=== PATIENT | male | born 1960 | race Two or more races ===

== ENCOUNTER 2021-04-27 19:51 | Observation (INO) | payer MEDICARE, MEDICAID ==
[~2021-04-27] VITALS: Ht 177.8 cm; Wt 87.5 kg
[2021-04-27 21:30] VITALS: BP 188/112
[2021-04-27] MEDS ORDERED: NS 1,000 ML IV SCH (21:50)
[2021-04-27] MEDS ORDERED: HYDROMORPHONE HCL 0.5 MG/ 0.5 ML SYRINGE (J1170 PER 1) IV PRN (21:50)
[2021-04-27] MEDS ORDERED: ACETAMINOPHEN TAB 650MG DOSE (2X325MG) PO PRN (21:50)
[2021-04-27] MEDS ORDERED: cefTRIAXone SOD 1 GM in D5W MINI-BAG PLUS 50 ML IV ONE (21:50)
[2021-04-27] MEDS ORDERED: PANT40TA29 PO (22:11)
[2021-04-27] MEDS ORDERED: HYDR-3713 PO (22:11)
[2021-04-27] MEDS ORDERED: TAMS1CAP17 PO (22:11)
[2021-04-27] MEDS ORDERED: IBUP80TA PO (22:11)
[2021-04-27] MEDS ORDERED: ONDA-83 PO (22:11)
[2021-04-27] MEDS ORDERED: CIAL20TA PO (22:13)
[2021-04-27] MEDS ORDERED: HOME MED LIST COMPLETE! XX SCH (22:20)
[2021-04-27] MEDS ORDERED: ONDANSETRON 4MG/2ML VIAL IV PRN (22:35)
[2021-04-27] MEDS ORDERED: **hydrALAZINE** 10 MG TAB PO PRN (22:35)
[2021-04-27] MEDS: PERCOCET 5MG/325MG TAB PO PRN (23:00)
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
[2021-04-28] MEDS ORDERED: PANTOPRAZOLE 40MG VIAL (C9113 PER 1) IV ONE (00:35)
[2021-04-28 01:29] VITALS: BP 146/79
--- NOTE | 2021-04-28 02:14 | SMCUROLCON ---
Urology Consultation General Date of Consultation 04/28/21 Reason For Consultation This patient is seen for Obstructing Renal Calculi. History of Present Illness The patient is a 60-year-old man with a past medical history of kidney stones, uncontrolled HTN, GERD, and "overactive adrenal gland," initially presenting to [facility] ED twice in under 24hrs w/ L flank pain. WBC 11, Cr 1.1, UA negative for infection. On second presentation, pt underwent CT scan which showed 6mm L obstructing ureteral stone w/ perinephric fluid and hydronephrosis (pt came with imaging on a disk; unable to view images at this time.). Pain unable to be controlled with PO pain medications or heating pads at home (which is how pt self-treated stones in the past). Pt denies fever, chills, N/V, hematuria, dysuria. Pt has had no prior procedures for stones but says that he has passed many in the past spontaneously. States that he normally uses a heating pad to assist with stone passage. Given pt's repeat presentation and inability to control pain with oral pain m eds, pt was transferred to [facility] and admitted to the Hospitalist service for further management and urology consult for likely intervention. Pt given Ceftriaxone, IV Dilaudid and PO Oxycodone; also initially had SBP in 180s but down to 140s by the time he was assessed by me at ~1am on 04/28/21. Pt appeared to be in less acute distress than described in previous records or verbal signout from ED provider at [facility]. Past Medical History Medical History Urolithiasis GERD HTN (uncontrolled) "overactive adrenal gland" (evaluation unclear as pt did not pursue full work-up and treatment) Surgical Hstory Appendectomy L shoulder R femur Medications Current Medications Current Medications Medications (Trade) Dose Ordered Sig/Bc Route PRN Reason Start Time Stop Time Status Last Admin Dose Admin Acetaminophen (Tylenol Tab) 650 mg Q4H PRN PO MILD PAIN or TEMP > 101 04/27/21 21:50 Heparin Sodium (Porcine) (Heparin) 5,000 units Q12H SC 04/28/21 09:00 04/27/21 22:36 DC Home Med (Home Med List Complete!) ASDIRECTED XX 04/27/21 22:20 04/27/21 22:18 DC Hydralazine HCl (Apresoline) 10 mg Q6HP PRN PO SBP > 170 or DBP >100 04/27/21 22:35 Hydromorphone HCl (Dilaudid) 0.4 mg Q3HP PRN IV SEVERE PAIN 04/27/21 21:50 04/28/21 00:21 Ondansetron HCl (ZOFRAN INJection) 4 mg Q6HP PRN IV NAUSEA OR VOMITING 04/27/21 22:35 Oxycodone/ Acetaminophen (Percocet 5mg/ 325mg Tablet) 1 tab Q6HP PRN PO MODERATE PAIN (PS 5-7) 04/27/21 21:50 04/27/21 23:00 Pantoprazole Sodium (Protonix) 40 mg DAILY PO 04/28/21 09:00 Sodium Chloride 1,000 ml @ 75 mls/hr [id number] IV 04/27/21 21:50 04/27/21 23:00 Tamsulosin HCl (Flomax) 0.4 mg DAILY PO 04/28/21 09:00 Allergies Allergies: Coded Allergies: No Known Allergies (Verified Allergy, Unknown, 04/27/21) Physical Examination General Exam: Cooperative, No Acute Distress Abdomen Exam: Soft, Tenderness (mild L flank tenderness) Vital Signs/I&O Vital Signs Date Time Temp Pulse Resp B/P (MAP) Pulse Ox O2 Delivery O2 Flow Rate FiO2 04/28/21 01:29 80 146/79 (101) 04/28/21 00:51 16 04/27/21 21:30 99.1 95 Room Air I&O- Last 24 Hours up to 6 AM 04/28/21 06:00 Intake Total 0 ml Output Total 475 ml Balance -475 ml Assessment 60yo M w/ 6mm L obstructive ureteral stone; no evidence of concurrent infection or concern for sepsis. Also w/ uncontrolled HTN, improved since admission. I spent 15 minutes explaining the pt's condition, treatment options, plan, and required follow-up. I explained that the pt's symptoms are unlikely to resolve without an intervention to relieve the blockage caused by the stone. I explained that a ureteral stent placement would be the best option to decompress his kidney and that the procedure itself is a very routine procedure with minimal risk (bleeding and infection being the primary risks, as well as inability to place stent which would require nephrostomy tube placement). I explained the alternatives, including direct draining via nephrostomy tube and primary ureteroscopy with laser lithotripsy. In a stable patient, ureteral stent placement is preferred over nephrostomy due to the less invasive nature of the procedure and the lack of external drainage appliances. Primary ureteroscopy would not be advisable in the setting of inflammation and perinephric fluid (described on CT report). I explained that the stent procedure will only decompress the kidney but that the pt will require follow-up with urology to have a second procedure to remove the kidney stone and the stent once acute inflammation has decreased. Pt voiced understanding and denied further questions. I will review these benefits, risks, and alternative treatments again with the patient prior to his procedure. Plan Pt admitted to hospitalist service: care appreciated NPO after midnight 4am labs (spoke with RN to have labs drawn earlier than routine AM); will need results prior to OR BP control for OR optimization Pt added on for L ureteral stent placement for 9am in OR; if pt's status changes (fever, worsening symptoms, hemodynamic instability), will proceed with urgent/emergent stent placement Pt should be stable for discharge after stent placement from urologic standpoint; will require follow-up with urology in 1-2 weeks to arrange for treatment of his stone and stent removal. Page with questions Time Spent on Consult: Time Spent / Consult (Minutes): 75 JAYLYN RICCI MD Apr 28, 2021 02:14
[2021-04-28 04:41] LABS: BASO # 0.1 10^3/uL (0.0-0.2); BASO % 0.4 % (0.0-1.0); EOS # 0.2 10^3/uL (0.0-0.5); EOS % 1.4 % (0.0-3.0); HEMATOCRIT 41.1 % (42.0-52.0); HEMOGLOBIN 14.1 g/dl (13.5-17.5); LYMPH # 2.4 10^3/uL (1.5-5.0); LYMPH % 21.2 % (24.0-44.0); MEAN CORPUSCULAR HEMOGLOBIN 31.1 pg (27.0-33.0); MEAN CORPUSCULAR HGB CONC 34.3 g/dl (32.0-36.5); MEAN CORPUSCULAR VOLUME 90.5 fl (80.0-96.0); NEUTROPHILS # 7.5 10^3/uL (1.5-8.5); NEUTROPHILS % 67.6 % (36.0-66.0); PLATELET COUNT, AUTOMATED 139 10^3/uL (150-450); RED BLOOD COUNT 4.54 10^6/uL (4.30-6.10); WHITE BLOOD COUNT 11.1 10^3/uL (4.0-10.0)
[2021-04-28 04:52] LABS: INR 1.02; PROTHROMBIN TIME 13.8 SECONDS (12.7-14.5)
[2021-04-28 04:55] LABS: BLOOD UREA NITROGEN 20 MG/DL (7-18); CALCIUM LEVEL 7.6 MG/DL (8.8-10.2); CARBON DIOXIDE LEVEL 25 MEQ/L (21-32); CHLORIDE LEVEL 107 MEQ/L (98-107); CREATININE FOR GFR 1.29 MG/DL (0.70-1.30); GLOMERULAR FILTRATION RATE > 60.0 (>49); GLUCOSE, FASTING 115 MG/DL (70-100); POTASSIUM SERUM 3.7 MEQ/L (3.5-5.1); SODIUM LEVEL 138 MEQ/L (136-145)
[2021-04-28 06:00] VITALS: BP 149/82
[2021-04-28] MEDS: TAMSULOSIN 0.4 MG CAP PO SCH (08:37)
[2021-04-28] MEDS: PANTOPRAZOLE 40MG TAB (PROTONIX) PO SCH (08:37)
[2021-04-28] MEDS ORDERED: CONRAY-60 60% 50ML VIAL (Q9961) As Ordered ONE (08:55)
[2021-04-28] MEDS ORDERED: HEPARIN SOD (PORCINE) 5000UNITS/ML 1ML VIAL/SYRINGE SC SCH (09:00)
[2021-04-28] MEDS ORDERED: ACETAMINOPHEN 1000MG 100ML IV BTL (OFIRMEV) (J0131 PER 10MG) As Ordered ONE (10:10)
[2021-04-28] MEDS ORDERED: MIDAZOLAM INJ 2MG/2ML VIAL (J2250 PER 1MG) As Ordered ONE (10:10)
[2021-04-28] MEDS ORDERED: propofoL 200 MG/20 ML VIAL As Ordered ONE (10:10)
[2021-04-28] MEDS ORDERED: ONDANSETRON 4MG/2ML VIAL As Ordered ONE (10:10)
[2021-04-28] MEDS ORDERED: fentaNYL 100 MCG/2 ML INJECTION (J3010) As Ordered ONE (10:10)
[2021-04-28] MEDS ORDERED: LIDOCAINE 2% 100MG/5ML SDV (FOR ANES.) As Ordered ONE (10:10)
[2021-04-28] MEDS ORDERED: dexameTHASONE 4 MG/ML 1ML VIAL (J1100 PER 1MG) As Ordered ONE (10:10)
[2021-04-28] MEDS ORDERED: LR 1,000 ML IV SCH (10:15)
[2021-04-28] MEDS ORDERED: oxyCODONE 5MG TAB PO PRN (10:15)
[2021-04-28] MEDS ORDERED: fentaNYL 100 MCG/2 ML INJECTION (J3010) IV PRN (10:15)
[2021-04-28] MEDS ORDERED: ONDANSETRON 4MG/2ML VIAL IV PRN (10:15)
--- NOTE | 2021-04-28 10:38 | ROOPDOC ---
[facility] Report Of Operation Report of Operation DATE OF PROCEDURE: 04/28/21 PREPROCEDURE DIAGNOSES: left ureteral stone POSTPROCEDURE DIAGNOSES: left ureteral stone PROCEDURE PERFORMED: cystoscopy, left retrograde pyelogram, left ureteral stent placement SURGEON: Nathan Ricci MD ANESTHESIA: General ESTIMATED BLOOD LOSS: Approximately 0 mL. COMPLICATIONS: none REMARKS: see procedure note FINDINGS: Normal tumors, blood clots, or stone fragments seen in bladder. No urine efflux seen from left ureteral orifice; normal clear efflux seen from right orifice. Retrograde pyelogram showed moderate left sided hydronephrosis with small filling defect in proximal ureter. 6Fr multilength double-J stent placed under fluoroscopic guidance with coils in kidney and bladder. SPECIMENS REMOVED: none PROCEDURE NOTE: 60yo M p/w L flank pain x 24hrs at [facility] not controlled by oral medications. No fever, neg UA at OSH. CT at OSH showed 6mm L proximal ureteral stone with hydro. Pt transferred to [facility] and started on ceftriaxone upon transfer (given at 11pm on 04/27/21) DESCRIPTION OF PROCEDURE: The patient was taken to the operating room, placed in the supine position, and underwent general anesthesia. He was already on therapeutic antibiotics (ceftriaxone, last given at 11pm on 04/27/21). He was placed in the dorsal lithotomy position, prepped and draped in the usual sterile fashion. He underwent cystourethroscopy. His bladder was remarkable for a high bladder neck but no tumors, blood clots, or stone fragments were need. The stone could not be seen fluoroscopically, but the left ureteral orifice appeared hypercontractile with no efflux seen, consistent with obstruction; normal ureteral jet observed on right side. A sensor wire was placed into the left ureteral orifice and up into the kidney. A retrograde pyelogram was performed which showed moderate left sided hydronephrosis with a small filling defect in the proximal ureter. The wire was replaced, and a 6 [place] multilength double-J stent was placed over the wire with multiple coils seen in the renal pelvis and the bladder under fluoroscopy. Clear urine with contrast could be seen draining around the stent cystoscopically. The bladder was drained and the cystoscope was removed. The patient will need to follow up in urology clinic to arrange for stone treatment and stent removal in the next 2-3 weeks. Patient can continue antibiotics x 24hrs post-procedure. NATHAN RICCI MD Apr 28, 2021 10:38
--- NOTE | 2021-04-28 10:46 | REP ---
INDICATION: URETERAL STENT PLACEMENT. COMPARISON: None. TECHNIQUE: Intraoperative fluoroscopic imaging using portable C-arm technique. FINDINGS: Left ureteral stent in satisfactory position. Total fluoroscopic time 4 seconds. IMPRESSION: Satisfactory left ureteral stent placement. <Electronically signed by Ovidio Domínguez > 04/28/21 [id number]
--- NOTE | 2021-04-28 10:48 | IPNPDOC ---
Subjective Review oF Systems Chief Complaint The patient is a 60-year-old male admitted with a reason for visit of Obstructing Renal Calculi. Events since Last Encounter Pt now s/p L ureteral stent placement. Procedure uncomplicated. 6Fr multilength stent placed. Objective Vital Signs/I&O Vital Signs Date Time Temp Pulse Resp B/P (MAP) Pulse Ox O2 Delivery O2 Flow Rate FiO2 04/28/21 10:10 89 18 156/75 (102) 94 Nasal Cannula 2.0 04/28/21 10:05 98.2 I&O- Last 24 Hours up to 6 AM 04/28/21 06:00 Intake Total 0 ml Output Total 675 ml Balance -675 ml Laboratory Data Labs 24H Laboratory Tests 2 04/28/21 04:07: Immature Granulocyte % (Auto) 0.4, Neutrophils (%) (Auto) 67.6H, Lymphocytes (%) (Auto) 21.2L, Monocytes (%) (Auto) 9.0H, Eosinophils (%) (Auto) 1.4, Basophils (%) (Auto) 0.4, Neutrophils # (Auto) 7.5, Lymphocytes # (Auto) 2.4, Monocytes # (Auto) 1.0H, Eosinophils # (Auto) 0.2, Basophils # (Auto) 0.1, Nucleated Red Blood Cells % (auto) 0.0, Prothrombin Time 13.8, Prothromb Time International Ratio 1.02, Activated Partial Thromboplast Time 30.0, Anion Gap 6L, Glomerular Filtration Rate > 60.0, Calcium Level 7.6L CBC/BMP Laboratory Tests 04/28/21 04:07 Assessment/Plan Date Seen The patient was seen on 04/28/21. Plan/VTE VTE Prophylaxis Ordered?: Yes Plan IVF: Discontinue Diet: Advance Activity: Encourage Ambulation Medications: Change to PO, Taper Antibiotics (Can d/c w/ 3 days of oral antibiotics; will need to f/u [facility]. Also may require BP meds on discharge per Hospitalist service) Anticipated Discharge: Home (Pt needs to follow-up with urology clinic for treatment of his ureteral stone and stent removal in 1-2 weeks. Pt informed of need to have additional procedure both when initially seen as well as in pre-op area. ) JAYLYN RICCI MD Apr 28, 2021 10:48
[2021-04-28 14:00] VITALS: BP 150/83
--- NOTE | 2021-04-28 14:00 | IPNPDOC ---
Text Note Date of Service The patient was seen on 04/28/21. NOTE Subjective: -Pain better controlled now that analgesics are onboard. NPO for stent placement this AM by urology Objective: Vitals: see below General: Alert, Cooperative, No Acute Distress Eyes: PERRLA, Conjunctiva & lids normal, EOMI, anicteric ENT: Atraumatic, Mucous membr. moist/pink, Pharynx Normal Neck: Supple, no JVD Chest: Clear to auscultation, Normal air movement Heart: Rate Normal, Regular Rhythm, Normal S1, Normal S2, no m/r/g Abdomen: Normal bowel sounds, soft, NTND, has L flank CVA tenderness Extremities: Normal pulses, WWP, no edema Skin: Nl turgor and temperature, no rashes or lesions Neuro: Normal Gait, Normal Speech, Cranial Nerves 3-12 NL Psych: AO x 3 Labs: WBC 11.1 Hgb 14.1 platelets 139 Na 138 K 3.7 Cr 1.29 Assessment: 60-year-old M with significant history of prior kidney stones that passed spontaneously, hypertension, and chronic low back pain who presents with complaints of left-sided flank pain and transferred from [facility] for urology evaluation for a 6 mm obstructing renal calculus with L hydronephrosis now pending stent placement this AM. Left hydronephrosis 2/2 obstructing renal calculus: 6 mm obstructing stone identified on CT imaging -K pad, IV dilaudid for severe pain PRN and PRN percocet for moderate pain -IV fluid hydration -flomax -NPO for stent placement this AM -Continue empiric coverage with ceftriaxone -Urology consulted, planning for L stent placement this AM -Not sure why there was no UA done on admission but now on ceftriaxone. Uncontrolled HTN: in setting of pain with above and hx of "overactive adrenal gland" not sure which layer is activated for androgen vs. corticosteroids vs. daisha overproduction, the history is unclear. -Much improved with improved pain control -Will need to monitor s/p stent placement and when pain has improved if HTN persists, because he may require standing treatment. For now is on PRN hydralazine -Patient greatly encouraged to follow-up with PCP and endocrinology for management of blood pressure and he was educated regarding the risks of long- term uncontrolled high blood pressure to include increased risk of heart attack and stroke especially with patient reported "adrenal problems" GERD: Continue protonix. DVT prophylaxis: SCDs and early ambulation CODE STATUS: Full code Disposition planning: Home, Anticipate less than 2 midnight VS,Tod, I+O VS, Tod, I+O Laboratory Tests 04/28/21 04:07 Vital Signs Date Time Temp Pulse Resp B/P (MAP) Pulse Ox O2 Delivery O2 Flow Rate FiO2 04/28/21 06:00 98.1 79 18 149/82 (104) 95 Room Air I&O- Last 24 Hours up to 6 AM 04/28/21 06:00 Intake Total 0 ml Output Total 675 ml Balance -675 ml JJ HARRISON MD Apr 28, 2021 08:18
[2021-04-28] MEDS: PERCOCET 5MG/325MG TAB PO PRN ×2 (14:50→22:20)
[2021-04-28] MEDS: amLODIPine 5 MG TAB PO SCH (16:17)
[2021-04-28 21:11] VITALS: BP 147/85
[2021-04-28] MEDS ORDERED: PERCOCET 5MG/325MG TAB PO PRN (21:45)
[2021-04-29] MEDS: PERCOCET 5MG/325MG TAB PO PRN (05:43)
[2021-04-29 06:00] VITALS: BP 145/85
[2021-04-29] MEDS: TAMSULOSIN 0.4 MG CAP PO SCH (08:35)
[2021-04-29] MEDS: PANTOPRAZOLE 40MG TAB (PROTONIX) PO SCH (08:35)
[2021-04-29 08:52] LABS: BASO # 0.1 10^3/uL (0.0-0.2); BASO % 0.5 % (0.0-1.0); EOS # 0.1 10^3/uL (0.0-0.5); EOS % 1.2 % (0.0-3.0); HEMATOCRIT 38.9 % (42.0-52.0); HEMOGLOBIN 13.6 g/dl (13.5-17.5); LYMPH # 2.5 10^3/uL (1.5-5.0); LYMPH % 22.9 % (24.0-44.0); MEAN CORPUSCULAR HEMOGLOBIN 31.3 pg (27.0-33.0); MEAN CORPUSCULAR VOLUME 89.4 fl (80.0-96.0); MONO % 8.9 % (2.0-8.0); NEUTROPHILS # 7.2 10^3/uL (1.5-8.5); PLATELET COUNT, AUTOMATED 143 10^3/uL (150-450); RED BLOOD COUNT 4.35 10^6/uL (4.30-6.10); WHITE BLOOD COUNT 10.9 10^3/uL (4.0-10.0)
[2021-04-29] MEDS ORDERED: CIPR-250 PO (09:00)
[2021-04-29] MEDS: amLODIPine 5 MG TAB PO SCH (09:00)
[2021-04-29 09:13] LABS: BLOOD UREA NITROGEN 16 MG/DL (7-18); CALCIUM LEVEL 8.3 MG/DL (8.8-10.2); CARBON DIOXIDE LEVEL 26 MEQ/L (21-32); CHLORIDE LEVEL 106 MEQ/L (98-107); CREATININE FOR GFR 0.78 MG/DL (0.70-1.30); GLOMERULAR FILTRATION RATE > 60.0 (>49); GLUCOSE, FASTING 102 MG/DL (70-100); POTASSIUM SERUM 3.7 MEQ/L (3.5-5.1); SODIUM LEVEL 138 MEQ/L (136-145)
--- NOTE | 2021-04-29 16:45 | DS.PDOC ---
Discharge Summary General Date of Admission Apr 27, 2021 at 21:30 Date of Discharge 04/29/2020 Attending Physician: JJ HARRISON MD Discharge Summary PROCEDURES PERFORMED DURING STAY: cystoscopy, left retrograde pyelogram, left ureteral stent placement on 04/28 ADMITTING DIAGNOSES: L obstructing renal calculi with associated hydronephrosis DISCHARGE DIAGNOSES: L obstructing renal calculi with associated hydronephrosis Essential hypertension. Patient refused treatment and attributed to pain. GERD DANIELA COMPLICATIONS/CHIEF COMPLAINT: Obstructing Renal Calculi. HISTORY OF PRESENT ILLNESS: 60-year-old M with significant history of GERD, migraines, kidney stones, "overactive adrenal gland", hypertension, and chronic low back pain who presented with complaints of left-sided flank pain from [facility]. Patient reported the pain started on the evening of 04/26 with nausea and tend erness to the left flank. He reported that he had similar symptoms in the past when he had kidney stones and thus he went to the ER for some pain control assistance. At that time, patient declined CT scan as he has in the past passed his kidney stones and felt he only needed some pain control and it would pass. Unfortunately, his pain got worse on 04/27 and he returned to ED. He denied decreased urine output, but did endorse hematuria. A CT abdomen pelvis completed at that time at [facility] showed a 6 mm obstructing renal calculus with associated perinephric fluid. UA was not overtly infectious and WBC 11. Creat 1.1. He was afebrile, hypertensive and mildly tachycardic. He was given IV fluids and urology at [facility] was consulted who recommended transfer to [facility] for intervention. HOSPITAL COURSE: On arrival to [facility], he was hemodynamically stable and afebrile but in severe pa in. The pain did improve with analgesics. He was evaluated by urology and he had cystoscopy, a left retrograde pyelogram and left ureteral stent placed on 04/28 with dramatic improvement in pain and resolution of phuong hematuria. He had periop ceftriaxone, and he is now being discharged home with 3d of cipro with close urology follow up within 7d and PCP follow up within 7d. I urged him to discuss the issue of untreated hypertension with checks with his PCP as untreated hypertension that is likely in this gentleman with a history of "overactive adrenal glands" would have deleterious health effects in the prison. I will not prescribe him anything for hypertension at this time, as he has refused treatment. DISCHARGE MEDICATIONS: Please see below. ALLERGIES: Please see below. PHYSICAL EXAMINATION ON DISCHARGE: VITAL SIGNS: Please see below. Vitals: see below General: Alert, Cooperative, No Acute Distress Eyes: PERRLA, Conjunctiva & lids normal, EOMI, anicteric ENT: Atraumatic, Mucous membr. moist/pink, Pharynx Normal Neck: Supple, no JVD Chest: Clear to auscultation, Normal air movement Heart: Rate Normal, Regular Rhythm, Normal S1, Normal S2, no m/r/g Abdomen: Normal bowel sounds, soft, NTND, mild L flank CVA tenderness Extremities: Normal pulses, WWP, no edema Skin: Nl turgor and temperature, no rashes or lesions Neuro: Normal Gait, Normal Speech, Cranial Nerves 3-12 NL Psych: AO x 3 LABORATORY DATA: Please see below. IMAGING: None inhouse. Had a L pyelogram during cystoscopy. PROGNOSIS: Good ACTIVITY: As tolerated. DIET: 2g sodium DISCHARGE PLAN: Home with 3d of cipro, close urology f/u within 7d and PCP f/u within 7d DISPOSITION: Home DISCHARGE INSTRUCTIONS: Home with 3d of cipro, close urology f/u within 7d and PCP f/u within 7d ITEMS TO FOLLOWUP ON ON OUTPATIENT: Kidney stones Hypertension DISCHARGE CONDITION: Stable TIME SPENT ON DISCHARGE: 34 minutes. Vital Signs/I&Os Vital Signs Date Time Temp Pulse Resp B/P (MAP) Pulse Ox O2 Delivery O2 Flow Rate FiO2 04/29/21 06:33 18 04/29/21 06:00 98.4 82 145/85 (105) 96 Room Air 04/28/21 21:00 0.0 I&O- Last 24 Hours up to 6 AM 04/29/21 06:00 Intake Total 2120 ml Output Total 2100 ml Balance 20 ml Discharge Medications Scheduled Ciprofloxacin HCl (Cipro) 250 Mg Tablet, 1 TAB PO BID Ibuprofen (Ibuprofen) 800 Mg Tablet, 800 MG PO TID, (Reported) Pantoprazole Sodium (Pantoprazole Sodium) 40 Mg Tablet.dr, 40 MG PO DAILY, (Reported) Tadalafil (Cialis) 20 Mg Tablet, 20 MG PO DAILY, (Reported) Tamsulosin Hcl (Tamsulosin HCl) 0.4 Mg Capsule, 0.4 MG PO DAILY, (Reported) Scheduled PRN Hydrocodone/Acetaminophen (Hydrocodone-Acetamin 5-325 mg) 1 Each Tablet, 1 TAB PO QID PRN for moderate to severe pain, (Reported) Ondansetron HCl (Ondansetron HCl) 4 Mg Tablet, 4 MG PO QID PRN for NAUSEA OR VOMITING, (Reported) Allergies Coded Allergies: No Known Allergies (Verified Allergy, Unknown, 04/27/21) JJ HARRISON MD Apr 29, 2021 08:59
== END 2021-04-29 11:45 | disposition home or self-care (01) ==
LOC: M MS5PR 21:30
PROVIDERS: ADMIT Internal Medicine; ATTEND Internal Medicine
DX: N13.2 Hydronephrosis with renal and ureteral calculous obstruction (principal); I10 Essential (primary) hypertension; K21.9 Gastro-esophageal reflux disease without esophagitis; N17.9 Acute kidney failure, unspecified; G43.909 Migraine, unspecified, not intractable, without status migrainosus; G89.29 Other chronic pain; Z79.899 Other long term (current) drug therapy
CPT/HCPCS: 36415; 52332; 74420; 80048; 85025; 85610; 85730; 96361; 96365; 96375; C1769; C2617; C9113; G0378; J0131; J0696; J1100; J1170; J2250; J2405; J3010; Q9961